=== PATIENT | female | born 1955 | race American Indian/Alaskan Native ===

== ENCOUNTER 2018-06-24 16:41 | Emergency (ER) | payer OTHER, BC ==
[2018-06-24 16:47] VITALS: TEMP 98; BMI 36.5
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
--- NOTE | 2018-06-24 18:23 | RAD ---
Date of service: 06/24/2018 PROCEDURE: Radiographs of the left elbow. HISTORY: injury COMPARISON: No prior. FINDINGS: BONES: Normal. No fracture. JOINTS: Normal. No osteoarthritis. SOFT TISSUES: Normal. JOINT EFFUSION: None. OTHER FINDINGS: None IMPRESSION: Unremarkable radiographs of the left elbow. Concordant results with the preliminary interpretation rendered by the emergency department physician procedure.
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
[2018-06-24 18:39] VITALS: BP 153/86; PULSE 63; RESP 16
[2018-06-24 22:34] VITALS: O2SAT 97
== END 2018-06-24 18:39 | disposition home or self-care (01) ==
LOC: C.ER 16:41
DX: S70.02XA Contusion of left hip, initial encounter (principal); S50.02XA Contusion of left elbow, initial encounter; V03.10XA Pedestrian on foot injured in collision with car, pick-up truck or van in traffic accident, initial encounter; Y92.410 Unspecified street and highway as the place of occurrence of the external cause